=== PATIENT | female | born 1950 | race Caucasian/White ===

== ENCOUNTER 2016-12-01 09:43 | Day surgery (SDC) | payer MEDICARE, OTHER ==
[~2016-12-01 09:43] MED LIST: Buffered Lidocaine 0.9% SYRIN* 5 ML/SYR SYRINGE INTRADERM ONE
[2016-12-01] MEDS ORDERED: ceFAZolin 2 GM in 100 MLS NS (*) BAG IVPB ONE (09:56)
[2016-12-01] MEDS ORDERED: Buffered Lidocaine 0.9% SYRIN* 5 ML/SYR SYRINGE ONE (09:56)
[2016-12-01 10:23] VITALS: BP 135/65
[2016-12-01] MEDS ORDERED: Bupivacaine 0.5% W/EPI SDV* 10 ML VIAL INJ ONE (10:32)
[2016-12-01] MEDS ORDERED: Lidocaine 2% EPI 1:200000 MPF* 20 ML VIAL ONE ×2 (10:33→10:53)
== END 2016-12-01 13:23 | disposition home or self-care (01) ==
LOC: OR 09:43
PROVIDERS: ATTEND Plastic Surgery
DX: D04.21 Carcinoma in situ of skin of right ear and external auricular canal (principal); I10 Essential (primary) hypertension; K21.9 Gastro-esophageal reflux disease without esophagitis
CPT/HCPCS: 88305; 88331; 88332

== ENCOUNTER 2017-05-25 19:07 | Emergency (ER) | payer MEDICARE, OTHER ==
[2017-05-25 20:50] LABS: ABS Basophils 0 10^3/ul (0-0.2); ABS Eosinophils 0.1 10^3/ul (0-0.6); ABS Lymphocytes 0.9 10^3/ul (1.0-4.8); ABS Monocytes 0.5 10^3/ul (0-0.8); ABS Neutrophils 6.2 10^3/ul (1.5-7.7); ABS Nucleated RBC 0 10^3/ul; Eosinophil % 1.4 % (0-6); Hematocrit 39 % (35-47); Hemoglobin 13.3 g/dl (12.0-16.0); Lymphocyte % 11.5 % (25-47); Mean Corpuscular HGB Conc 34 g/dl (31-36); Mean Corpuscular Hemoglobin 32 pg (27-31); Mean Corpuscular Volume 94 fL (80-97); Mean Platelet Volume 7 um3 (7.4-10.4); Nucleated Red Blood Cells % 0; Platelet Count 220 10^3/ul (150-450); Red Blood Count 4.18 10^6/ul (4.0-5.4); Red Cell Distribution Width 13 % (10.5-15); White Blood Count 7.7 10^3/ul (3.5-10.8)
[2017-05-25 21:00] LABS: EGFR Non-African American 61.9 (>60)
[2017-05-26] MEDS ORDERED: Omeprazole CAP* 20 MG PO ONE (00:46)
[2017-05-26] MEDS ORDERED: Levofloxacin TAB* 500 MG PO ONE (02:25)
[2017-05-26 02:44] VITALS: BP 145/65
--- NOTE | 2017-05-26 04:38 | ED ---
Ike Worthington Thomas, scribed for Ulices Law on 05/25/17 at 2320 . Abdominal Pain/Female - HPI Summary HPI Summary: The patient is a 66 year old female presenting to the emergency department complaining of upper abdominal pain that began today at 16:00. The pain radiates to her back. The patient additionally complains of nausea and vomiting. The pain is alleviated by vomiting. The patient denies chest pain and shortness of breath. - History of Current Complaint Chief Complaint: EDAbdPain Stated Complaint: ABD PAIN Time Seen by Provider: 05/25/17 23:04 Hx Obtained From: Patient Onset/Duration: Lasting Hours - onset today at 14:00, Still Present Timing: Constant Severity Currently: Moderate Pain Intensity: 4 Pain Scale Used: 0-10 Numeric Location: Other - Upper Radiates: Yes Radiates to: Back Alleviating Factor(s): Vomiting Associated Signs and Symptoms: Positive: Nausea, Vomiting. Negative: Fever, Diarrhea Allergies/Adverse Reactions: Allergies Allergy/AdvReac Type Severity Reaction Status Date / Time No Known Allergies Allergy Verified 12/01/16 10:12 PMH/Surg Hx/FS Hx/Imm Hx Endocrine/Hematology History: Denies: Hx Diabetes Cardiovascular History: Reports: Hx Hypertension - ON MEDS PT. STATES CONTROLLED Denies: Hx Pacemaker/ICD GI History: Reports: Hx Gastroesophageal Reflux Disease - ON MEDS CONTROLLED, Other GI Disorders - CHRONIC CONSTIPATION History: Denies: Hx Renal Disease Sensory History: Reports: Hx Contacts or Glasses Denies: Hx Hearing Aid Opthamlomology History: Reports: Hx Contacts or Glasses Psychiatric History: Denies: Hx Panic Disorder - Cancer History Hx Chemotherapy: No Hx Radiation Therapy: No - Surgical History Surgery Procedure, Year, and Place: LEFT WRIST GANGLION CYST 1980 REMOVED Hx Anesthesia Reactions: No Infectious Disease History: No Infectious Disease History: Denies: Traveled Outside the [place] in Last 30 Days - Family History Known Family History: Negative: Other - gallbladder disease - Social History Alcohol Use: Rare Alcohol Amount: 1 Q 3-4 MONTHS Substance Use Type: Reports: None Smoking Status (MU): Never Smoked Tobacco Review of Systems Negative: Fever Positive: Abdominal Pain, Vomiting, Nausea. Negative: Diarrhea All Other Systems Reviewed And Are Negative: Yes Physical Exam - Summary Physical Exam Summary: Appearance: Well appearing, no pain distress Skin: warm, dry, reflects adequate perfusion Head/face: normal Eyes: EOMI, NAVIN ENT: normal Neck: supple, non-tender Respiratory: CTA, breath sounds present Cardiovascular: RRR, pulses symmetrical Abdomen: Soft. Mild epigastric tenderness. Bowel: present Musculoskeletal: normal, strength/ROM intact Neuro: normal, sensory motor intact, A&Ox3 Triage Information Reviewed: Yes Vital Signs On Initial Exam: Initial Vitals Temp Pulse Resp BP Pulse Ox 98.2 F 73 20 152/79 96 05/25/17 19:11 05/25/17 19:11 05/25/17 19:11 05/25/17 19:11 05/25/17 19:11 Vital Signs Reviewed: Yes Diagnostics - Vital Signs Vital Signs Temp Pulse Resp BP Pulse Ox 05/25/17 21:34 98.6 F 69 14 145/69 98 05/25/17 19:11 98.2 F 73 20 152/79 96 - Laboratory Lab Results: Lab Results 05/25/17 05/25/17 05/25/17 Range/Units 20:25 20:25 20:25 WBC 7.7 (3.5-10.8) 10^3/ul RBC 4.18 (4.0-5.4) 10^6/ul Hgb 13.3 (12.0-16.0) g/dl Hct 39 (35-47) % MCV 94 (80-97) fL MCH 32 H (27-31) pg MCHC 34 (31-36) g/dl RDW 13 (10.5-15) % Plt Count 220 (150-450) 10^3/ul MPV 7 L (7.4-10.4) um3 Neut % (Auto) 80.5 (38-83) % Lymph % (Auto) 11.5 L (25-47) % Mcminn % (Auto) 6.0 (1-9) % Eos % (Auto) 1.4 (0-6) % Baso % (Auto) 0.6 (0-2) % Absolute Neuts (auto) 6.2 (1.5-7.7) 10^3/ul Absolute Lymphs (auto) 0.9 L (1.0-4.8) 10^3/ul Absolute Monos (auto) 0.5 (0-0.8) 10^3/ul Absolute Eos (auto) 0.1 (0-0.6) 10^3/ul Absolute Basos (auto) 0 (0-0.2) 10^3/ul Absolute Nucleated RBC 0 10^3/ul Nucleated RBC % 0 Sodium 136 (133-145) mmol/L Potassium 3.8 (3.5-5.0) mmol/L Chloride 102 (101-111) mmol/L Carbon Dioxide 26 (22-32) mmol/L Anion Gap 8 (2-11) mmol/L BUN 23 (6-24) mg/dL Creatinine 0.91 (0.51-0.95) mg/dL Est GFR ( Amer) 79.5 (>60) Est GFR (Non-Af Amer) 61.9 (>60) BUN/Creatinine Ratio 25.3 H (8-20) Glucose 182 H (70-100) mg/dL Lactic Acid 1.8 (0.5-2.0) mmol/L Calcium 9.6 (8.6-10.3) mg/dL Total Bilirubin 0.30 (0.2-1.0) mg/dL AST 19 (13-39) U/L ALT 17 (7-52) U/L Alkaline Phosphatase 76 (34-104) U/L Troponin I 0.02 (<0.04) ng/mL C-Reactive Protein < 1.00 (< 5.00) mg/L Total Protein 7.2 (6.4-8.9) g/dL Albumin 4.2 (3.2-5.2) g/dL Globulin 3.0 (2-4) g/dL Albumin/Globulin Ratio 1.4 (1-3) Lipase < 10 L (11.0-82.0) U/L Result Diagrams: 05/25/17 20:25 05/25/17 20:25 Lab Statement: Any lab studies that have been ordered have been reviewed, and results considered in the medical decision making process. - EKG 20:17 Cardiac Rate: NL EKG Rhythm: Sinus Rhythm - at 72 BPM EKG Interpretation: No acute changes. - Additional Comments Diagnostic Additional Comments: Ultrasound Gallbladder. Interpreted by radiologist. Impression: Cholelithiasis with gallbladder wall thickening. Correlation with history, infectious disease parameters, and physical exam is recommended. Dr. Law has reviewed this report. Abdominal Pain Fem Course/Dx - Course Course Of Treatment: The patient is a 66 year old female complaining of upper abdominal pain that radiates to her back and is alleviated by vomiting. Bloodwork was obtained. Ultrasound Gallbladder shows Cholelithiasis with gallbladder wall thickening. Correlation with history, infectious disease parameters, and physical exam is recommended. The patient is diagnosed with cholecystitis. The patient is instructed to follow up with surgery. - Diagnoses Differential Diagnosis: Positive: Diverticulitis, Gall Bladder Disease, Urinary Tract Infection Provider Diagnoses: Cholecystitis - Provider Notifications Discussed Care Of Patient With: Juwan Jimenez Time Discussed With Above Provider: 02:09 Instructed by Provider To: Other - Dr. Jimenez, surgery, will see the patient as an outpatient. Discharge - Discharge Plan Condition: Stable Disposition: HOME Prescriptions: Levofloxacin TAB* [Levaquin TAB*] 500 mg PO DAILY #10 tab oxyCODONE/Acetamin 5/325 MG* [Percocet 5/325 TAB*] 1 tab PO Q8H PRN #15 tab MDD 3 PRN Reason: Pain Patient Education Materials: Cholecystitis (ED), Low Fat Diet (ED) Referrals: Juwan Jimenez MD [Medical Doctor] - 3 Days Additional Instructions: Follow up with Dr. Jimenez, surgery, in three days. Return to the emergency department for any new or worsening symptoms. The documentation as recorded by the Ike duenas Thomas accurately reflects the service I personally performed and the decisions made by Thanh esquivel Emmanuel.
--- NOTE | 2017-05-26 08:00 | RAD ---
HISTORY: Cholecystitis, right upper quadrant pain COMPARISONS: None TECHNIQUE: Multiple transverse and longitudinal ultrasound images were obtained of the right upper quadrant of the abdomen using grayscale and color Doppler imaging. FINDINGS: LIVER: The liver is normal in shape, size, contour, and echogenicity. There are no focal parenchymal masses. There is normal hepatopedal flow of the portal vein on Doppler imaging. BILIARY TREE: There is no intrahepatic or extrahepatic biliary dilatation. The common duct measures 0.4 cm. GALLBLADDER: Gallstones are noted. There is focal gallbladder wall thickening up to 1 cm. There is no pericholecystic fluid. No sonographic Oden sign is reported. PANCREAS: The head of the pancreas is unremarkable. The tail of the pancreas is not well visualized secondary to overlying bowel gas. RIGHT KIDNEY: The right kidney is normal in shape, size, contour, and echogenicity. There is no hydronephrosis or nephrolithiasis. The right kidney measures 9.4 x 4.4 x 4.6 cm. AORTA AND IVC: The aorta and IVC are unremarkable. FLUID: There are no pleural effusions. There is no free fluid within the hepatorenal recess. OTHER FINDINGS: None. IMPRESSION: CHOLELITHIASIS WITH FOCAL GALLBLADDER WALL THICKENING, CONCERNING FOR ACUTE CHOLECYSTITIS, THOUGH THE SONOGRAPHIC FEATURES ARE INDETERMINATE. RECOMMEND CORRELATION WITH CLINICAL PRESENTATION.
== END 2017-05-26 02:40 | disposition home or self-care (01) ==
LOC: ED 19:07
DX: K81.9 Cholecystitis, unspecified (principal); R11.2 Nausea with vomiting, unspecified; Z86.79 Personal history of other diseases of the circulatory system
CPT/HCPCS: 36415; 76705; 80053; 83605; 83690; 84484; 85025; 86140; 93005; 99284; A9270-GY

== ENCOUNTER 2018-04-01 21:13 | Emergency (ER) | payer MEDICARE, OTHER ==
[2018-04-01 21:21] VITALS: BP 145/71
[2018-04-01] MEDS ORDERED: Ondansetron ODT TAB* 4 MG SL ONE (21:24)
--- NOTE | 2018-04-01 21:25 | UC ---
Abdominal Pain Female HPI - HPI Summary HPI Summary: 67 yo female presents with sudden RUQ and epigastric abdominal pain with vomiting that began around 1600 this afternoon. She tells me that she has a history of gallstones and has pain similar to this in the past (around Apr 2017) . She has had three episodes of vomiting since 1600. She tried to eat toast, but it "came right back up". This morning she felt fine and ate breakfast. Had a good BM. Denies fever, chills, SOB, chest pain, diarrhea, dysuria. 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 Lt WRIST - GANGLION CYST REMOVED - Family History Known Family History: Negative: Other - gallbladder disease - Social History Lives: With Family Alcohol Use: Rare Alcohol Amount: 1 Q 3-4 MONTHS Substance Use Type: None Smoking Status (MU): Never Smoked Tobacco Review of Systems All Other Systems Reviewed And Are Negative: Yes Constitutional: Positive: Negative Skin: Positive: Negative Respiratory: Positive: Negative Cardiovascular: Positive: Negative Gastrointestinal: Positive: Abdominal Pain, Vomiting, Nausea Genitourinary: Positive: Negative Neurovascular: Positive: Negative Neurological: Positive: Negative Psychological: Positive: Negative Physical Exam - Summary Physical Exam Summary: GENERAL: Mildly ill appearing. Mild pain distress SKIN: No rashes, sores, lesions, or open wounds. NECK: Supple. Nontender. No lymphadenopathy. CHEST: CTAB. No r/r/w. No accessory muscle use. Breathing comfortably and in no distress. CV: RRR. Without m/r/g. Pulses intact. Cap refill <2seconds ABDOMEN: Moderate TTP RUQ and about epigastrum. Soft. No distention or guarding. No CVA tenderness. Bowel sounds present NEURO: Alert. PSYCH: Age appropriate behavior. Triage Information Reviewed: Yes Vital Signs: Initial Vital Signs Temp 98.0 F 04/01/18 21:17 Pulse 71 04/01/18 21:17 Resp 16 04/01/18 21:17 BP 145/71 04/01/18 21:17 Pulse Ox 100 04/01/18 21:17 Vital Signs Reviewed: Yes Abd Pain Female Course/Dx - Course Course Of Treatment: Suspect biliary pain. Discussed with pt my suspicions and recommened a further evaluation in the ED for possible obstruction given her history of cholelithiasis. She was agreeable to this, but declined ambulance transfer. Her friend will drive her. Pt was given zofran SL and toradol IM in the clinic. - Differential Dx/Diagnosis Provider Diagnosis: RUQ pain, Vomiting, Gallstone Discharge - Sign-Out/Discharge Documenting (check all that apply): Patient Departure All imaging exams completed and their final reports reviewed: No Studies - Discharge Plan Condition: Stable Disposition: HOME-RECOMMEND TO ED Referrals: Linda Garcia NP [Primary Care Provider] - Additional Instructions: Please go to the ER for further evaluation of your abdominal pain and vomiting - Billing Disposition and Condition Condition: STABLE Disposition: Home-Recommend to ED
[2018-04-01] MEDS ORDERED: Ketorolac INJ* 60 MG/2 ML VIAL IM ONE (21:38)
== END 2018-04-01 21:51 | disposition home health service (06) ==
LOC: UCEAST 21:13
DX: R10.11 Right upper quadrant pain (principal); R11.10 Vomiting, unspecified; K80.80 Other cholelithiasis without obstruction; I10 Essential (primary) hypertension; Z85.828 Personal history of other malignant neoplasm of skin
CPT/HCPCS: 96372; 99212; A9270-GY; G0463; J1885

== ENCOUNTER 2018-04-01 22:14 | Emergency (ER) | payer MEDICARE, OTHER ==
--- NOTE | 2018-04-01 23:49 | ED ---
Abdominal Pain/Female - HPI Summary HPI Summary: Patient is a 67 y/o F presenting to ED with complaints of periumbilical pain, N/ V, and back pain since 1600 today. She was seen at earlier today, was given toradol and zofran at 1745 per nurse who is with her. In room, she denies fever and diarrhea, notes that her pain has resolved at this point. Beforehand, pain was described as constant and was noted to radiate to upper back. PMHx of gallstones since April, reports no attacks since then. No Hx of abdominal surgeries. Patient notes that she only ate breakfast today. She is concerned that she may have an ulcer due to "years of taking Advil on an empty stomach. On triage, pain was rated 6/10, nothing is noted to aggravate/alleviate Sx. Home medications and allergies are reviewed. 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 Negative : Fever, Diarrhea Allergies/Adverse Reactions: Allergies Allergy/AdvReac Type Severity Reaction Status Date / Time No Known Allergies Allergy Verified 04/01/18 21:21 PMH/Surg Hx/FS Hx/Imm Hx Endocrine/Hematology History: Denies: Hx Diabetes Cardiovascular History: Reports: Hx Hypertension - ON MEDS PT. 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 Lt WRIST - GANGLION CYST REMOVED Hx Anesthesia Reactions: No - Immunization History Date of Influenza Vaccine: Fall 2016 Infectious Disease History: No Infectious Disease History: Denies: Traveled Outside the [place] in Last 30 Days - Family History Known Family History: Negative: Other - gallbladder disease - Social History Alcohol Use: Rare Alcohol Amount: 1 Q 3-4 MONTHS Substance Use Type: Reports: None Smoking Status (MU): Never Smoked Tobacco Review of Systems Negative: Fever Positive: Vomiting, Nausea. Negative: Abdominal Pain, Diarrhea Musculoskeletal: Other - POSITIVE - BACK PAIN All Other Systems Reviewed And Are Negative: Yes Physical Exam - Summary Physical Exam Summary: VITAL SIGNS: Reviewed. GENERAL: Patient is a well-developed and nourished female who is lying comfortable in the stretcher. Patient is not in any acute respiratory distress. HEAD AND FACE: No signs of trauma. No ecchymosis, hematomas or skull depressions. No sinus tenderness. EYES: PERRLA, EOMI x 2, No injected conjunctiva, no nystagmus. EARS: Hearing grossly intact. Ear canals and tympanic membranes are within normal limits. MOUTH: Oropharynx within normal limits. NECK: Supple, trachea is midline, no adenopathy, no JVD, no carotid bruit, no c- spine tenderness, neck with full ROM. CHEST: Symmetric, no tenderness at palpation LUNGS: Clear to auscultation bilaterally. No wheezing or crackles. CVS: Regular rate and rhythm, S1 and S2 present, no murmurs or gallops appreciated. ABDOMEN: Soft, non-tender. No signs of distention. No rebound no guarding, and no masses palpated. Bowel sounds are normal. EXTREMITIES: FROM in all major joints, no edema, no cyanosis or clubbing. NEURO: Alert and oriented x 3. No acute neurological deficits. Speech is normal and follows commands. SKIN: Dry and warm Triage Information Reviewed: Yes Vital Signs On Initial Exam: Initial Vitals Temp Pulse Resp BP Pulse Ox 97.8 F 73 20 134/75 98 04/01/18 22:16 04/01/18 22:16 04/01/18 22:16 04/01/18 22:16 04/01/18 22:16 Vital Signs Reviewed: Yes Diagnostics - Vital Signs Vital Signs Temp Pulse Resp BP Pulse Ox 04/01/18 22:16 97.8 F 73 20 134/75 98 - Laboratory Result Diagrams: 04/01/18 00:15 04/01/18 00:15 Lab Statement: Any lab studies that have been ordered have been reviewed, and results considered in the medical decision making process. - Ultrasound No standard instances Ultrasound Interpretation Completed By: Radiologist Summary of Ultrasound Findings: GALLBLADDER US IMPRESSION: There are echogenic calculi in the gallbladder lumen consistent with. cholelithiasis and the gallbladder is moderately distended but no abnormal. gallbladder wall thickening negative sonographic Oden sign therefore not. specific for acute cholecystitis. THIS REPORT WAS REVIEWED BY ED PHYSICIAN. Re-Evaluation - Re-Evaluation First Eval Re-Evaluation Time: 00:58 Change: Improved Comment: Patient reports improvement in pain after medications. Results of labs and tests were discussed, patient will be discharged and follow up with surgery. Patient is agreeable with this. Abdominal Pain Fem Course/Dx - Course Course Of Treatment: Patient is a 67 y/o F presenting to ED with complaints of periumbilical pain, N/V, and back pain since 1600 today. She was seen at earlier today, was given toradol and zofran at 1745 per nurse who is with her. In room, she denies fever and diarrhea, notes that her pain has resolved at this point. Beforehand, pain was described as constant and was noted to radiate to upper back. PMHx of gallstones since April, reports no attacks since then. No Hx of abdominal surgeries. Patient notes that she only ate breakfast today. She is concerned that she may have an ulcer due to "years of taking Advil on an empty stomach. Physical exam is normal. Labs showed WBC 7.2, MCH 33, MPV 7.2, absolute lymphs 0.6, sodium 134, chloride 99, BUN/creatinine 24.4, glucose 161, CRP < 1, amylase 41, lipase < 10, ALT 19, AST 20, alk phos 74 , total bilirubin 0.50. During ED course, patient received 5/325 Percocet Tab PO ED ONCE ONE. GALLBLADDER US IMPRESSION: There are echogenic calculi in the gallbladder lumen consistent with. cholelithiasis and the gallbladder is moderately distended but no abnormal. gallbladder wall thickening negative sonographic Oden sign therefore not. specific for acute cholecystitis. Patient reports improvement in pain after medications. Results of labs and tests were discussed, patient will be discharged and follow up with surgery. Patient is agreeable with this. - Diagnoses Provider Diagnoses: Cholelithiasis Discharge - Sign-Out/Discharge Documenting (check all that apply): Patient Departure - DISCHARGE - Discharge Plan Condition: Stable Disposition: HOME Prescriptions: Ondansetron ODT TAB* [Zofran 4 MG Odt TAB*] 4 mg PO Q6H PRN #14 tab.odt PRN Reason: Nausea/Vomiting oxyCODONE/Acetamin 5/325 MG* [Percocet 5/325 TAB*] 1 tab PO Q6H PRN #14 tab MDD 4 PRN Reason: Pain Patient Education Materials: Gallstones (ED) Referrals: Damon Lee MD [Medical Doctor] - 3 Days Additional Instructions: RETURN TO THE EMERGENCY DEPARTMENT FOR CHANGING OR WORSENING SYMPTOMS. FOLLOW UP WITH SURGERY IN THREE DAYS ON WEDNESDAY. - Attestation Statements Document Initiated by Scribe: Yes Documenting Scribe: FREDDY NOVAK Provider For Whom Scribe is Documenting (Include Credential): LARISSA PRADO MD Scribe Attestation: [email or web address] , scribed for LARISSA PRADO MD on 04/02/18 at 0138. Status of Scribe Document: Ready
[2018-04-02 00:25] LABS: ABS Basophils 0 10^3/ul (0-0.2); ABS Eosinophils 0 10^3/ul (0-0.6); ABS Lymphocytes 0.6 10^3/ul (1.0-4.8); ABS Monocytes 0.3 10^3/ul (0-0.8); ABS Neutrophils 6.4 10^3/ul (1.5-7.7); ABS Nucleated RBC 0 10^3/ul; Eosinophil % 0.1 %; Hematocrit 38 % (35-47); Hemoglobin 13.2 g/dl (12.0-16.0); Lymphocyte % 7.8 %; Mean Corpuscular HGB Conc 35 g/dl (31-36); Mean Corpuscular Hemoglobin 33 pg (27-31); Mean Corpuscular Volume 94 fL (80-97); Mean Platelet Volume 7.2 fL (7.4-10.4); Nucleated Red Blood Cells % 0; Platelet Count 274 10^3/ul (150-450); Red Blood Count 4.06 10^6/ul (4.00-5.40); Red Cell Distribution Width 13 % (10.5-15); White Blood Count 7.2 10^3/ul (3.5-10.8)
[2018-04-02 00:41] LABS: ALT 19 U/L (7-52); AST 20 U/L (13-39); Albumin 4.4 g/dL (3.2-5.2); Albumin/Globulin Ratio 1.5 (1-3); Alkaline Phosphatase 74 U/L (34-104); Amylase 41 U/L (29-103); Anion Gap 10 mmol/L (2-11); BUN/Creatinine Ratio 24.4 (8-20); Blood Urea Nitrogen 21 mg/dL (6-24); C Reactive Protein < 1.00 mg/L (<8.01); CO2 Carbon Dioxide 25 mmol/L (22-32); Calcium 9.7 mg/dL (8.6-10.3); Chloride 99 mmol/L (101-111); EGFR Non-African American 65.8 (>60); Glucose 161 mg/dL (70-100); Potassium 4.1 mmol/L (3.5-5.0); Sodium 134 mmol/L (135-145); Total Protein 7.4 g/dL (6.4-8.9)
[2018-04-02] MEDS ORDERED: oxyCODONE/Acetamin 5/325 MG* TAB PO ONE (01:22)
[2018-04-02 01:53] VITALS: BP 0/0
== END 2018-04-02 01:30 | disposition home or self-care (01) ==
LOC: ED 22:14
DX: K80.20 Calculus of gallbladder without cholecystitis without obstruction (principal); M54.9 Dorsalgia, unspecified; R11.2 Nausea with vomiting, unspecified; I10 Essential (primary) hypertension; R10.11 Right upper quadrant pain; R11.10 Vomiting, unspecified; K80.80 Other cholelithiasis without obstruction; Z85.828 Personal history of other malignant neoplasm of skin
CPT/HCPCS: 36415; 76705; 80053; 82150; 83690; 85025; 86140; 96372; 99212; 99282; A9270-GY; G0463; J1885

== ENCOUNTER 2021-07-19 06:43 | Observation (INO) ==
[2021-07-19] MEDS ORDERED: Famotidine IV 10 MG/ML 2 ml VIAL (20 mg) IV SLOW PU ONE (07:34)
[2021-07-19] MEDS: Ondansetron 4 mg VIAL 2 MG/ML 2 ml VIAL IV ONE ×2 (07:54→11:32)
[2021-07-19 08:14] LABS: Hematocrit 41 % (35-47); Mean Corpuscular HGB Conc 35 g/dL (31-36); Mean Corpuscular Hemoglobin 32 pg (27-31); Mean Corpuscular Volume 93 fL (80-97); Mean Platelet Volume 7.5 fL (7.4-10.4); Platelet Count 251 10^3/uL (150-450); Red Blood Count 4.38 10^6 /uL (3.70-4.87); Red Cell Distribution Width 13 % (10-15); White Blood Count 8.9 10^3/uL (3.5-10.8)
[2021-07-19 08:24] LABS: High Sens Troponin Baseline 9 pg/mL (<15)
[2021-07-19 08:44] LABS: ALT 16 U/L (7-52); AST 18 U/L (13-39); Albumin 4.5 g/dL (3.2-5.2); Albumin/Globulin Ratio 1.6 (1-3); Alkaline Phosphatase 88 U/L (35-149); Anion Gap 12 mmol/L (2-11); Blood Urea Nitrogen 21 mg/dL (6-24); C Reactive Protein 5.18 mg/L (<8.01); CO2 Carbon Dioxide 26 mmol/L (22-32); Chloride 94 mmol/L (101-111); Globulin 2.9 g/dL (2-4); Glucose 209 mg/dL (70-100); Lipase < 10 U/L (11.0-82.0); Potassium 4.1 mmol/L (3.5-5.0); Sodium 132 mmol/L (135-145); Total Protein 7.4 g/dL (6.4-8.9)
[2021-07-19] MEDS ORDERED: Iohexol 300 (CONTRAST) 10 ML SDV IV ONE (08:45)
[2021-07-19] MEDS ORDERED: Morphine 4 MG/ML VIAL (1 ml) IV ONE ×2 (09:21→11:40)
[2021-07-19] MEDS ORDERED: Iodixanol (CONTRAST) 320 MG/ML 100 ML SDV IV ONE (09:30)
[2021-07-19] MEDS ORDERED: Acetaminophen IV 1 GM/100ML 100 ML IV ONE (09:38)
[2021-07-19 09:44] LABS: High Sensitivity Troponin 1 Hr 8 pg/mL (<15)
[2021-07-19] MEDS: Al Hydrox/Mg Hydrox/Simet LIQ 30 ML UDC PO ONE (11:23)
[2021-07-19] MEDS ORDERED: Ondansetron 4 mg VIAL 2 MG/ML 2 ml VIAL ONE (11:26)
[2021-07-19] MEDS ORDERED: Ondansetron 4 mg VIAL 2 MG/ML 2 ml VIAL IV ONE (11:27)
[2021-07-19] MEDS ORDERED: HYDROcodone/ACETAMIN 5/325 mg TAB PO ONE (12:48)
[2021-07-19 13:27] LABS: Hepatitis C Antibody Negative (Negative)
[2021-07-19] MEDS ORDERED: Dextrose 50% Syringe 50 ml 25 GM/50 ML SYRINGE IV PUSH PRN (17:26)
[2021-07-19] MEDS: Heparin 5000 UNITS/ML 1 mL VIAL SUBCUT SCH (20:32)
[2021-07-19] MEDS: Pantoprazole VIAL 40 MG VIAL IV SCH (20:32)
[2021-07-19] MEDS ORDERED: Ondansetron 4 mg VIAL 2 MG/ML 2 ml VIAL IV PRN (20:35)
[2021-07-19] MEDS ORDERED: Morphine 4 MG/ML VIAL (1 ml) IV PRN (20:39)
[2021-07-19] MEDS ORDERED: Acetaminophen IV 1 GM/100ML 100 ML IV PRN (20:48)
[2021-07-19] MEDS ORDERED: Senna TAB 8.6 mg TAB PO SCH (21:00)
[2021-07-19] MEDS: Sucralfate 1 gm SUSP 1 GM/10 ML UDC PO SCH (22:13)
[2021-07-20 05:09] LABS: ABS Lymphocytes 0.5 10^3/ul (1.0-4.8); ABS Monocytes 1.1 10^3/ul (0-0.8); ABS Neutrophils 9.7 10^3/ul (1.5-7.7); Hematocrit 39 % (35-47); Hemoglobin 13.7 g/dL (12.0-16.0); Lymphocyte % 4.2 %; Mean Corpuscular HGB Conc 35 g/dL (31-36); Mean Corpuscular Hemoglobin 32 pg (27-31); Mean Corpuscular Volume 91 fL (80-97); Mean Platelet Volume 7.5 fL (7.4-10.4); Platelet Count 221 10^3/uL (150-450); Red Blood Count 4.25 10^6 /uL (3.70-4.87); Red Cell Distribution Width 13 % (10-15); White Blood Count 11.3 10^3/uL (3.5-10.8)
[2021-07-20 05:33] LABS: Albumin 3.8 g/dL (3.2-5.2); Calcium 8.8 mg/dL (8.6-10.3); Direct Bilirubin 0.2 mg/dL (0.03-0.18); Indirect Bilirubin 0.7 mg/dL (0.3-1.0); Potassium 3.9 mmol/L (3.5-5.0); Total Bilirubin 0.9 mg/dL (0.2-1.0)
[2021-07-20 05:39] LABS: Albumin/Globulin Ratio 1.5 (1-3); Globulin 2.5 g/dL (2-4); Total Protein 6.3 g/dL (6.4-8.9); eGFR CKD-EPI 93.6 (>60)
[2021-07-20] MEDS: Heparin 5000 UNITS/ML 1 mL VIAL SUBCUT SCH ×2 (05:46→15:56)
[2021-07-20] MEDS: Sucralfate 1 gm SUSP 1 GM/10 ML UDC PO SCH ×2 (07:43→12:13)
[2021-07-20] MEDS: Pantoprazole VIAL 40 MG VIAL IV SCH (09:42)
[2021-07-20 15:43] VITALS: BP 112/48
== END 2021-07-20 16:35 | disposition home or self-care (01) ==
LOC: ED 06:43 → EDHOLD 06:43 → SUATTDRO 17:20 → MED 19:23
PROVIDERS: ADMIT Nurse Practitioner; ATTEND Internal Medicine